=== PATIENT | male | born 1965 | race Caucasian/White ===

== ENCOUNTER 2025-08-22 17:12 | Emergency (ER) | payer MEDICARE, MEDICAID ==
[~2025-08-22] VITALS: Ht 185.4 cm; Wt 126.5 kg
[2025-08-22 17:18] VITALS: BP 138/92; PULSE 97; RESP 16; TEMP 98; O2SAT 98
== END 2025-08-22 20:29 | disposition left against medical advice (07) ==
LOC: ER 17:13
DX: L02.01 Cutaneous abscess of face (principal); L02.413 Cutaneous abscess of right upper limb; M25.561 Pain in right knee; Z53.21 Procedure and treatment not carried out due to patient leaving prior to being seen by health care provider
CPT/HCPCS: 99281